=== PATIENT | female | born 1980 ===

== ENCOUNTER → 2017-01-03 | Outpatient (CLI) | payer BC ==
[~2017-01-03] MED LIST: PRENTAB26 PO
== END | disposition home or self-care (01) ==
LOC: C.PAPS 11:45
PROVIDERS: ATTEND Physician Assistant
DX: Z01.419 Encounter for gynecological examination (general) (routine) without abnormal findings (principal)

== ENCOUNTER → 2017-01-10 | Outpatient (CLI) | payer BC ==
--- NOTE | 2017-01-10 16:11 | MAMMOGRAPHY REPORT ---
BILATERAL DIGITAL DIAGNOSTIC MAMMOGRAM TOMOSYNTHESIS WITH CAD AND TARGETED RIGHT ULTRASOUND: 01/10/2017 CLINICAL HISTORY: 36-year-old woman with a palpable lump in the 11:00 right breast which was previous ly biopsied but pathology results are felt to be discordant as no masslike features were seen at path ology. TECHNIQUE: Bilateral breast tomosynthesis in addition to standard 2D mammography was performed. Curre nt study was also evaluated with a Computer Aided Detection (CAD) system. COMPARISON: Comparison is made to exam dated: 10/10/2014 mammogram - [facility]. BREAST COMPOSITION: The tissue of both breasts is extremely dense, which lowers the sensitivity of m ammography. FINDINGS: There is a triangular palpable marker in the upper outer 10:30 to 11:00 middle one third o f the right breast, denoting the palpable lump pointed out by the patient. In the area of concern, t here is a circumscribed, 2.1 x 2.0 x 2.2 cm mass. No associated architectural distortion or calcific ation area did a biopsy marker clip is identified 2-3 cm posterior to the mammographic mass. No other obvious mass, architectural distortion or cluster of microcalcifications is seen bilaterally. Targeted ultrasound was performed in the right breast in the area of palpable lump pointed out by the patient (11:00 axis, 3 cm from the nipple). In the area of palpable concern, there is a solid macro lobulated parallel hypoechoic mass measuring 2.1 x 1.4 x 2.1 cm. Although this most likely represent s a benign fibroadenoma, prior biopsy results were un-yielding. Therefore, repeat attempt at ultraso und-guided core needle biopsy is recommended for definitive characterization. IMPRESSION: ACR BI-RADS CATEGORY 4A: LOW SUSPICION FOR MALIGNANCY, TARGETED ULTRASOUND ACR BI-RADS C ATEGORY 4A: LOW SUSPICION FOR MALIGNANCY 1. Right breast ultrasound guided core needle biopsy is recommended for a solid palpable mass in the 11:00 right breast, measuring 2.2 cm. 2. Stable mammographic appearance of the left breast, without mammographic evidence of malignancy. These results and recommendations were discussed with the patient at the time of the exam. She tenta tively scheduled the procedure in our department. Approximately 10% of breast cancers are not detected with mammography. A negative mammographic report should not delay biopsy if a clinically suggestive mass is present. Tanya Raphael M.D. ay/:01/10/2017 14:57:19 Communications Administrator: Shaina HARE)(Maria Esther), [facility] letter sent: Abnormal 4/5 BI-RADS Code: ACR BI-RADS Category 4A: Low Suspicion For Malignancy Ultrasound BI-RADS: ACR BI-RADS Category 4A: Low Suspicion For Malignancy
== END | disposition home or self-care (01) ==
LOC: C.MAMM 08:23
PROVIDERS: ATTEND Physician Assistant
DX: N63 Unspecified lump in breast (principal)

== ENCOUNTER → 2017-01-11 | Outpatient (CLI) | payer BC ==
--- NOTE | 2017-01-11 13:00 | Discharge Instructions ---
Discharge Instructions Procedure Procedure Date: Jan 11, 2017. Reason for visit: Right Mass. Discharge Discharge Date: Jan 11, 2017. Discharge Diagnosis: status post breast biopsy Instructions Activity Recommendations: Additional Limitations (see below) Return to School/Work: no limitations Recommended Home Diet: No Limitations Provider Instructions: ACTIVITY RECOMMENDATIONS: * No lifting, pushing, pulling or exercising the affected side for three days. RETURN TO SCHOOL/WORK: * You may return to work/school after the procedure, but do not perform any strenuous activities for 24 to 48 hours. MEDICATIONS: * Tylenol (two 325 mg) every four to six hours if needed for mild pain (if not allergic to Tylenol). DIET: * Resume previous diet. SPECIAL CARE INSTRUCTIONS: * Keep biopsy site dry for 24 hours. May shower after 24 hours, but do not soak (bathe) incision. * May remove Tegaderm (plastic patch) tomorrow AFTER showering. * Leave the steri-strips on for one week. Allow the steri-strips to fall off by themselves. If not off after one week, you may remove them. You may place a Bandaid crosswise over the strips, if desired. * Apply ice 10 minutes on and 10 minutes off as needed. * Wear a bra at bedtime to sleep more comfortably for 2-3 days. * Your referring physician should have the results after approximately 5 to 7 business days. * Call for unusual bleeding, fever, drainage, etc or if you have any questions call during normal business hours or after hours call Dr Thomas, . FOLLOW UP VISIT: Follow-up with Referring Physician as scheduled. Allergies Coded Allergies: No Known Allergies (Verified , 09/20/09) Brittnee Chong Recommendations: Call your doctor if: * Temperature above 101 degrees * Pain not relieved by pain medicine ordered * There is increased drainage or redness from any incision * You have any unanswered questions or concerns. Your Doctors Instructions noted above were prepared by provider Glenny Thomas. Patient Signature Section: Patient Instructions Signature Page Denise Basurto Patient (or Guardian) Signature/Date: I have read and understand the instructions given to me by my caregivers. Caregiver/RN/Doctor Signature/Date: The above-named patient and/or guardian has received patient instructions on this date. + Original Patient Signature Page (only) stays with chart. Please make copy for patient.
--- NOTE | 2017-01-11 15:40 | MAMMOGRAPHY REPORT ---
UNILATERAL RIGHT DIGITAL DIAGNOSTIC MAMMOGRAM TOMOSYNTHESIS: 01/11/2017 CLINICAL HISTORY: Status post ultrasound-guided biopsy of a right 11:00 breast mass. TECHNIQUE: Breast tomosynthesis in addition to standard 2D mammography was performed. Postprocedura l right CC and ML tomosynthesis images including C views were obtained. COMPARISON: Comparison is made to exams dated: 01/10/2017 ultrasound, 01/10/2017 mammogram - [facility], and 10/10/2014 mammogram - [facility]. BREAST COMPOSITION: The tissue of the right breast is extremely dense, which lowers the sensitivity of mammography. FINDINGS: A new biopsy marker clip is seen within the biopsied right 9:00 breast mass. No significa nt postbiopsy hematoma is seen. IMPRESSION: POST PROCEDURE IMAGING FOR MARKER PLACEMENT New biopsy marker clip status post ultrasound-guided biopsy of a right 11:00 breast mass. Pathology results are pending. Approximately 10% of breast cancers are not detected with mammography. A negative mammographic report should not delay biopsy if a clinically suggestive mass is present. Glenny Thomas M.D. /:01/11/2017 13:06:24 Locker Room Attendant: Ximena Maldonado, [facility] BI-RADS Code: Post Procedure Imaging For Marker Placement
--- NOTE | 2017-01-11 15:40 | MAMMOGRAPHY REPORT ---
ULTRASOUND GUIDED BIOPSY RIGHT BREAST: 01/11/2017 CLINICAL HISTORY: Right 11:00 breast mass. PATIENT CONSENT: The procedure, risks and benefits were discussed with the patient and informed writt en consent was obtained. A timeout was performed immediately prior to the procedure. PROCEDURE DESCRIPTION: With ultrasound guidance, aseptic technique, and lidocaine as the local anesth etic (1% lidocaine to anesthetize the skin and 1% lidocaine with epinephrine to anesthetize the deepe r tissues), the mass of concern in the right 11:00 breast was sampled 4 times with a 14-gauge Achieve biopsy needle. Immediately thereafter, with ultrasound guidance, aseptic technique, and lidocaine a s the local anesthetic, a ribbon-shaped metallic localizer clip was placed centrally in the mass. Di rect pressure was applied to the site immediately post procedure and hemostasis was achieved. Postpr ocedure unilateral mammograms were performed to confirm placement of the clip in the expected locatio n of the breast mass. The patient tolerated the procedure without complication. She was given wound care instructions. The specimens were sent to pathology for analysis. COMPARISON: Comparison is made to exams dated: 01/10/2017 ultrasound, 01/10/2017 mammogram - [facility], and 10/10/2014 mammogram - [facility]. IMPRESSION: ULTRASOUND GUIDED BIOPSY Ultrasound-guided core needle biopsy of the right 11:00 breast mass, with clip placement. The patien t will receive pathology results from her referring provider. Glenny Thomas M.D. /:01/11/2017 13:01:19 Marine Insulator: Ximena Maldonado, [facility]
== END | disposition home or self-care (01) ==
LOC: C.MAMM 12:36
PROVIDERS: ATTEND Physician Assistant
DX: N63 Unspecified lump in breast (principal); D24.1 Benign neoplasm of right breast